=== PATIENT | female | born 1990 | race Caucasian/White ===

== ENCOUNTER → 2018-10-08 | Outpatient (REF) | payer OTHER | LOC: M SFHCLERA 17:33 | PROVIDERS: ATTEND Nurse Practitioner Family | DX: K14.3 Hypertrophy of tongue papillae (principal) ==

== ENCOUNTER → 2019-05-27 | Outpatient (REF) | payer OTHER | LOC: M SFHCLERA 18:12 | PROVIDERS: ATTEND Physician Assistant | DX: J02.9 Acute pharyngitis, unspecified (principal) ==

== ENCOUNTER → 2020-01-14 | Outpatient (CLI) | payer OTHER ==
--- NOTE | 2020-01-15 12:17 | REP ---
LEFT FOOT, FOUR VIEWS: Four views of left foot performed. There is a nondisplaced fracture at the base of the 5th metatarsal. I see no other evidence of acute fracture, dislocation, or intrinsic bone disease. IMPRESSION: Nondisplaced fracture base of 5th metatarsal. Electronically Signed by Mason Siegel MD 01/15/2020 09:35 P
== END ==
LOC: M LRY 16:58
PROVIDERS: ATTEND Physician Assistant
DX: S92.355A Nondisplaced fracture of fifth metatarsal bone, left foot, initial encounter for closed fracture (principal); X50.1XXA Overexertion from prolonged static or awkward postures, initial encounter; Y92.89 Other specified places as the place of occurrence of the external cause

== ENCOUNTER → 2020-11-10 | Outpatient (CLI) | payer OTHER ==
[2020-11-10 10:46] LABS: HEMOGLOBIN 13.9 g/dl (12.0-15.5); MEAN CORPUSCULAR HEMOGLOBIN 31.1 pg (27.0-33.0); MEAN CORPUSCULAR HGB CONC 33.9 g/dl (32.0-36.5); MEAN CORPUSCULAR VOLUME 91.7 fl (80.0-96.0); PLATELET COUNT, AUTOMATED 223 10^3/uL (150-450); RED BLOOD COUNT 4.47 10^6/uL (4.00-5.40); WHITE BLOOD COUNT 6.7 10^3/uL (4.0-10.0)
[2020-11-10 11:00] LABS: HEMOGLOBIN A1c 4.7 %
[2020-11-10 11:25] LABS: ALBUMIN 3.8 GM/DL (3.2-5.2); ALT/SGPT 36 U/L (12-78); BILIRUBIN,TOTAL 0.6 MG/DL (0.2-1.0); BLOOD UREA NITROGEN 13 MG/DL (7-18); CALCIUM LEVEL 8.9 MG/DL (8.5-10.1); CARBON DIOXIDE LEVEL 28 MEQ/L (21-32); CHLORIDE LEVEL 111 MEQ/L (98-107); CHOLESTEROL LEVEL 142 MG/DL (<200); CHOLESTEROL RISK RATIO 2.958 (<5); CREATININE FOR GFR 0.69 MG/DL (0.55-1.30); GLOMERULAR FILTRATION RATE > 60.0 (>60); GLUCOSE, FASTING 87 MG/DL (70-100); HDL CHOLESTEROL 48 MG/DL (>40); IRON (FE) 117 UG/DL (50-170); LDL CHOLESTEROL 77 MG/DL (<100); LUTEINIZING HORMONE 3.8 mIU/mL; NON-HDL-C 94 MG/DL; PERCENT SATURATION 41.9 % (13.2-45.0); POTASSIUM SERUM 4.6 MEQ/L (3.5-5.1); SODIUM LEVEL 142 MEQ/L (136-145); THYROXINE (T4) 14.3 UG/DL (4.5-12.0); TOTAL 25(OH) VITAMIN D 20.4 NG/ML (30.0-100.0); TOTAL IRON BINDING CAPACITY 279 UG/DL (250-450); TOTAL PROTEIN 6.9 GM/DL (6.4-8.2); TRIGLYCERIDES LEVEL 85 MG/DL (<150)
[2020-11-10 11:26] LABS: ESTRADIOL < 19.0 PG/ML; FOLLICLE STIMULATING HORMONE 5.7 mIU/mL; TOTAL T3 131.3 NG/DL (60.0-181.0)
== END ==
LOC: M LAB 09:57
PROVIDERS: ATTEND Family Medicine
DX: D64.9 Anemia, unspecified (principal); R53.83 Other fatigue; E03.9 Hypothyroidism, unspecified